=== PATIENT | male | born 1990 | race Two or more races ===

== ENCOUNTER 2017-08-23 21:55 | Emergency (ER) | payer OTHER ==
[~2017-08-23] VITALS: Ht 182.9 cm; Wt 113.4 kg
[2017-08-23 21:58] VITALS: BP 131/69
[2017-08-23] MEDS ORDERED: LIDOCAINE 0.5% HCL 50 ML VIAL ONE (22:14)
[2017-08-23] MEDS ORDERED: ACETAMINOPHEN ES 500 MG TABLET ONE (22:25)
[2017-08-23] MEDS ORDERED: TDAP [DIPH/PERTUSSIS/TET] 0.5 ML VIAL IM ONE ×2 (22:25→22:30)
[2017-08-23] MEDS ORDERED: LIDOCAINE 1% INJ 50 ML MDV IJ ONE (22:30)
[2017-08-23] MEDS ORDERED: ACETAMINOPHEN ES 500 MG TABLET PO ONE (22:30)
--- NOTE | 2017-08-23 22:33 | NUR ---
PT REFUSED TDAP MEDICATION. MADE AWARE.
== END 2017-08-23 22:59 ==
LOC: ER 21:58
DX: S01.21XA Laceration without foreign body of nose, initial encounter (principal); S19.9XXA Unspecified injury of neck, initial encounter; F17.200 Nicotine dependence, unspecified, uncomplicated; Y04.2XXA Assault by strike against or bumped into by another person, initial encounter; Y93.89 Activity, other specified; Y92.89 Other specified places as the place of occurrence of the external cause; Y99.8 Other external cause status
CPT/HCPCS: 12011; 99283; 99406; A4606; A6402; J3490; Z7610; 90715